=== PATIENT | male | born 1950 | race Caucasian/White ===

== ENCOUNTER → 2017-03-10 | Outpatient (CLI) | payer MEDICARE ==
[~2017-03-10] MED LIST: ASPIRIN 81MG TA81 MG PO; COENZYME Q PO; LEVAQUIN500 MG PO; NIFEDIPINE ER60 MG PO; PERCOCET1 TAB PO; PRILOSEC40 MG PO; PROTONIX 40MG T40 MG PO; XANAX 1MG TABLET1 MG PO; ZOFRAN ODT4 MG PO
--- NOTE | 2017-03-10 13:56 | RADIOLOGY REPORT PS360 ---
ARTERIAL/DYO-WGPDRXOGNEG-DRC CLAUDICATION, smoker, hypertension ORDERING PHYSICIAN: ESTELLE ARROYO MD PATIENT AGE: 66 years TECHNIQUE: Segmental pressures obtained of both right and left leg. These are compared to brachial blood pressure to yield index at each level sampled including summary RAUL. The data sheets from the procedure are available in PACS FINDINGS Rest study only performed today No prior studies available for comparison. Blood pressures reported are in millimeters mercury. RIGHT LEG RAUL = 1.0. Brachial BP: 162 Thigh BP: 167 Calf BP: 163 Ankle PT: 166 Ankle DP : 157 Digit =98 LEFT LEG RAUL = 1.2 Brachial BPD: 161 Thigh BP: 173 Calf BP: 181 Ankle PT:186 Ankle DP: 179 Digit = 148 Pulses and waveforms: Normal IMPRESSION: The ABIs as reported above are within normal limits. Waveforms and pulses are also unremarkable.
--- NOTE | 2017-03-11 12:22 | RADIOLOGY REPORT PS360 ---
CARDIOLITE SPECT MYOCARDIAL PERFUSION SCAN, REST AND STRESS: EXERCISE STRESS [facility] REVIEW QGS EF AND WALL MOTION EVALUATION: QPS - PERFUSION EVALUATION HISTORY: abn ekg..claudication DOSE: 10.29 mCi technetium 99m mibi intravenously at rest followed by 32.5 mCi technetium 99m mibi following the intravenous ministration of 0.4 mg of Lexiscan. Resting blood pressure is 150/77. Stress blood pressure 129/69. FINDINGS: Ejection fraction is calculated to be 50%. Stress images reveal severely decreased activity in the inferolateral wall wall rest images reveal no significant change IMPRESSION: Extensive transmural myocardial infarction involving the inferior lateral wall with associated regional wall motion abnormality with preserved ejection fraction at 50%. Clinical correlation is advised. No reversible ischemia
--- NOTE | 2017-03-11 12:22 | RADIOLOGY REPORT PS360 ---
CARDIOLITE SPECT MYOCARDIAL PERFUSION SCAN, REST AND STRESS: EXERCISE STRESS [facility] REVIEW QGS EF AND WALL MOTION EVALUATION: QPS - PERFUSION EVALUATION HISTORY: abn ekg..claudication DOSE: 10.29 mCi technetium 99m mibi intravenously at rest followed by 32.5 mCi technetium 99m mibi following the intravenous ministration of 0.4 mg of Lexiscan. Resting blood pressure is 150/77. Stress blood pressure 129/69. FINDINGS: Ejection fraction is calculated to be 50%. Stress images reveal severely decreased activity in the inferolateral wall wall rest images reveal no significant change IMPRESSION: Extensive transmural myocardial infarction involving the inferior lateral wall with associated regional wall motion abnormality with preserved ejection fraction at 50%. Clinical correlation is advised. No reversible ischemia
--- NOTE | 2017-03-11 16:31 | RADIOLOGY REPORT PS360 ---
PROCEDURE: 2-D M-mode and color Doppler study INDICATIONS FOR THE TEST: Chest pain COPD Heart Murmur Tobacco Smoking+ Palpitations Fatigue Syncope Edema Hypertension+Diabetes Mellitus Rheumatic Fever SOB BROOKS Obesity Hyperlipidemia Family History HD Additional History ABN EKG PATIENT INFORMATION HEIGHT: 67 WEIGHT:160 GENDER: Male B/P:160/80 2-D/M-MODE INTERPRETATION: 2-D MEASUREMENTS OBSERVED VALUES IN CMS Right Ventricular Dimension (RVDd) 1.9 Interventricular Septum (Thickness)(IVsd) 1.4 Left Ventricular Internal Dimensions(LVIDd) 5.2 Left Ventricular Posterior Wall (Thickness)(LVPWd) 0.8 Aortic Root 3.7 Aortic Cusp Separation 1.9 Left Atrial Dimensions (LAD) 4.1 2D 1. Left atrium is mildly enlarged, left ventricle is normal size, there is mild concentric left ventricular hypertrophy present, visually estimated ejection fraction of 55% with no obvious regional wall motion abnormality. 2. The right atrium and right ventricle are normal size and contractility. 3. The aortic valve is thickened and calcified, leaflet continue to display some mobility. 4. The mitral valve leaflets of myxomatous, there is mild prolapse of both anterior and posterior mitral leaflet. 5. The tricuspid valve is grossly normal 6. The pulmonic valve is poorly visualized. 7. There is trivial pericardial effusion noted. DOPPLER INTERROGATION: 1. The aortic out flow velocity within normal range, there is no aortic stenosis, there is mild aortic insufficiency present. 2. The mitral inflow velocity within normal range, there is no mitral stenosis, there is eccentric jet of mitral regurgitation present which is difficult to quantify, it is at least a moderate range, if clinically indicated transesophageal echocardiogram is recommended. Grade 1 diastolic dysfunction seen without tissue Doppler evidence of raised left atrial pressure. 3. There is mild tricuspid regurgitation noted, tricuspid and jet velocity insufficient for calculation of the right ventricular systolic pressure. CONCLUSION: 1. Mildly enlarged left atrium, normal left ventricular size, mild concentric left ventricular hypertrophy, visually estimated ejection fraction of 55% with no obvious regional wall motion abnormality, grade 1 diastolic dysfunction seen without tissue Doppler evidence of raised left atrial pressure. 2. Thickened and calcified aortic valve without aortic stenosis, there is mild aortic insufficiency. 3. Maximal the mitral valve with mild prolapse of both anterior and posterior mitral leaflet, there is eccentric jet of the mitral regurgitation present, which is difficult to quantify it is likely a moderate range, if clinically indicated transesophageal echocardiogram is recommended for further evaluation. 4. There is trivial pericardial effusion noted.
== END ==
LOC: RAD 06:19
DX: R94.31 Abnormal electrocardiogram [ECG] [EKG] (principal); I70.213 Atherosclerosis of native arteries of extremities with intermittent claudication, bilateral legs; I25.10 Atherosclerotic heart disease of native coronary artery without angina pectoris; I10 Essential (primary) hypertension; E78.5 Hyperlipidemia, unspecified; Z72.0 Tobacco use; Z82.49 Family history of ischemic heart disease and other diseases of the circulatory system; Z01.818 Encounter for other preprocedural examination; F10.20 Alcohol dependence, uncomplicated
CPT/HCPCS: A9502; J2785